=== PATIENT | male | born 1960 | race Two or more races ===

== ENCOUNTER 2017-09-23 03:03 | Emergency (ER) | payer OTHER ==
[~2017-09-23] VITALS: Ht 167.6 cm; Wt 63.5 kg
[~2017-09-23 03:03] MED LIST: CATAPRES0.1 MG; CATAPRES0.2 MG; CLONAZEPAM1 M1; ENALAPRIL MALEAT5 MG; OMEPRAZOLE40 MG PO; PLAVIX75 MG; PROGRAF1 MG; ULTRAM50 MG PO; XANAX1 MG
== END 2017-09-23 13:13 | disposition home or self-care (01) ==
LOC: ER 03:03 → CPU-OBS 03:05 → ER 03:05
DX: M94.0 Chondrocostal junction syndrome [Tietze] (principal); R07.89 Other chest pain

== ENCOUNTER 2017-10-24 17:14 | Emergency (ER) | payer OTHER ==
[~2017-10-24] VITALS: Ht 167.6 cm; Wt 72.6 kg
== END 2017-10-25 14:02 | disposition designated cancer center or children's hospital (05) ==
LOC: ER 17:14 → CPU-OBS 17:21 → ER 17:21
DX: K83.0 Cholangitis (principal); K56.699 Other intestinal obstruction unspecified as to partial versus complete obstruction; E80.6 Other disorders of bilirubin metabolism; I24.9 Acute ischemic heart disease, unspecified; I10 Essential (primary) hypertension; R07.89 Other chest pain; A41.89 Other specified sepsis; Z94.4 Liver transplant status